=== PATIENT | female | born 1965 | race Two or more races ===

== ENCOUNTER 2018-02-22 16:43 | Outpatient (CLI) | payer BC, OTHER | END 2018-02-22 16:44 | disposition home or self-care (01) | LOC: LAB.R 16:43 | PROVIDERS: ATTEND Obstetrics & Gynecology | DX: N76.0 Acute vaginitis (principal) | CPT/HCPCS: 81001; 87086; 87181 ==

== ENCOUNTER 2018-02-22 16:55 | Outpatient (CLI) | payer BC ==
[2018-02-22 18:30] LABS: FOLLICLE STIMULATING HORMONE 106.23 mIU/mL
[2018-02-22 18:31] LABS: LUTEINIZING HORMONE 46.7 mIU/mL
== END 2018-02-22 16:56 | disposition home or self-care (01) ==
LOC: LAB 16:55
PROVIDERS: ATTEND Obstetrics & Gynecology
DX: N95.1 Menopausal and female climacteric states (principal); N76.0 Acute vaginitis
CPT/HCPCS: 36415; 82670; 83001; 83002; 87086; 87181

== ENCOUNTER 2018-03-01 15:46 | Outpatient (CLI) | payer BC ==
--- NOTE | 2018-03-02 11:13 | Ultrasound Report ---
Reason: LEIOMYOMA OF UTERUS Procedure Date: 03/01/2018 Accession Number: [id number] / [id number] Procedure: US - Pelvic w/Transvaginal CPT Code: FULL RESULT: EXAM: PELVIC ULTRASOUND EXAM DATE: 03/01/2018 06:06 PM. CLINICAL HISTORY: Leiomyoma of uterus. COMPARISON: None. TECHNIQUE: Realtime transabdominal pelvic scan performed to identify the uterus and adnexa and as an overview of other pelvic structures, followed by transvaginal scan to provide greater detail of the uterus and adnexa, with static image documentation. FINDINGS: Uterus: 7.1 x 3.6 x 5.4 cm, volume 72 cc. Anteverted position. Masses: Anterior right hyperechoic 1.8 x 1.2 x 3.0 cm mass and left posterior mildly hypoechoic 2.1 x 2.4 x 2.6 cm mass are consistent with intramural fibroids. Within the central cervix and lower uterine segment there is a solid-appearing intermediate echogenicity nodule which measures 1.8 x 1.0 x 1.3 cm, tapering in dimension superiorly. It demonstrates some internal vascularity and is suspicious for polyp or other neoplasm. Malignancy is not excluded. Endometrium: 5.3 mm. Mildly prominent for a postmenopausal patient with mild heterogenicity and some border indistinctness. Right Ovary: Only definitely visualized transabdominally. Approximate size 3.3 x 1.6 x 2.5 cm, volume 7.0 cc. Grossly normal echotexture and blood flow. Left Ovary: Only definitely visualized transabdominally. Approximate size 3.1 x 2.0 x 2.8 cm, volume 9.0 cc. Grossly normal echotexture and blood flow. Free Fluid: None. Other: None. IMPRESSION: 1. Findings consistent with 2 intramural uterine fibroids measuring up to 2.6 and 3.0 cm. 2. Endometrial thickening, heterogenicity and mild indistinctness. There is also a vascular 1.8 x 1.0 x 1.3 cm mass which is likely endometrial at the level of the cervix and lower uterine segment which could represent a polyp. Malignancy is not excluded and further evaluation is recommended. 3. The ovaries are grossly normal, by transabdominal imaging. RADIA
== END 2018-03-01 15:47 | disposition home or self-care (01) ==
LOC: DI 15:46
PROVIDERS: ATTEND Obstetrics & Gynecology
DX: D25.1 Intramural leiomyoma of uterus (principal); R93.89 Abnormal findings on diagnostic imaging of other specified body structures
CPT/HCPCS: 76830; 76856

== ENCOUNTER 2018-03-22 12:04 | Outpatient (CLI) | payer BC | END 2018-03-22 12:05 | disposition home or self-care (01) | LOC: LAB 12:04 | PROVIDERS: ATTEND Obstetrics & Gynecology | DX: N95.1 Menopausal and female climacteric states (principal) | CPT/HCPCS: 36415; 84443 ==

== ENCOUNTER 2018-05-09 12:16 | Outpatient (CLI) | payer BC ==
[2018-05-09 13:02] LABS: BASOPHILS # (AUTO) 0.1 10^3/uL (0.0-0.1); BASOPHILS % (AUTO) 1.1 %; EOSINOPHILS # (AUTO) 0.1 10^3/uL (0.0-0.7); HGB - HEMOGLOBIN 12.2 g/dL (12.0-16.0); LYMPHOCYTES % (AUTO) 42.4 %; MEAN CORPUSCULAR HEMOGLOBIN 30.1 pg (27.0-31.0); MEAN CORPUSCULAR HGB CONC 34.2 g/dL (32.0-36.0); MEAN PLATELET VOLUME 7.7 fL (7.9-10.8); MONOCYTES # (AUTO) 0.5 10^3/uL (0.0-1.0); MONOCYTES % (AUTO) 7.8 %; NEUTROPHILS # (AUTO) 3.3 10^3/uL (1.5-6.6); NEUTROPHILS % (AUTO) 46.7 %; PLT - PLATELET COUNT 335 10^3/uL (130-450); RED BLOOD COUNT 4.07 10^6/uL (4.20-5.40); RED CELL DISTRIBUTION WIDTH 13.6 % (12.0-15.0)
[2018-05-09 13:09] LABS: CREATININE 0.6 mg/dL (0.4-1.0)
[2018-05-09 15:33] LABS: BILIRUBIN,URINE NEGATIVE (NEGATIVE); GLUCOSE, URINE (UA) NEGATIVE (NEGATIVE); KETONES,URINE (UA) NEGATIVE (NEGATIVE); LEUKOCYTE ESTERASE, URINE NEGATIVE (NEGATIVE); NITRITE,URINE NEGATIVE (NEGATIVE); OCCULT BLOOD,URINE TRACE-INTA (NEGATIVE); PH,URINE 5.5 PH (5.0-7.5); PROTEIN,URINE NEGATIVE (NEGATIVE); UROBILINOGEN,URINE 0.2 (NORMAL) E.U./dL (NORMAL)
[2018-05-09 15:38] LABS: CLARITY,URINE HAZY (CLEAR)
== END 2018-05-09 12:17 | disposition home or self-care (01) ==
LOC: LAB 12:16
PROVIDERS: ATTEND Obstetrics & Gynecology
DX: Z01.812 Encounter for preprocedural laboratory examination (principal); R10.2 Pelvic and perineal pain; N84.0 Polyp of corpus uteri
CPT/HCPCS: 36415; 80048; 81003; 85025; 86850; 86900; 86901; 93005

== ENCOUNTER 2018-05-11 08:43 | Day surgery (SDC) | payer BC ==
[2018-05-11] MEDS ORDERED: ceFAZolin 2 GM/50 ML 2 GM/50 ML BAG IV ONE ×2 (08:57→09:08)
[2018-05-11] MEDS ORDERED: LACTATED RINGERS 1,000 ML IV ONE ×4 (09:11→21:38)
--- NOTE | 2018-05-11 09:57 | ANESTHESIA ---
Pre-Anesthesia VS, & Labs - Diagnosis endometrial polyp pelvic pain - Procedure total laparoscopic hysterectomy and bilateral salpingo-oopherectomy Vital Signs: Temp Pulse Resp BP Pulse Ox 37.4 C 67 16 106/86 H 100 05/11/18 09:22 05/11/18 09:22 05/11/18 09:22 05/11/18 09:22 05/11/18 09:22 Height 5 ft 4 in Weight (kg) 77.4 kg - NPO >8 hours - Is Patient ?: No Home Medications and Allergies Home Medications: Ambulatory Orders Acyclovir 400 mg PO DAILY 05/05/18 Multivitamin [Multivitamins] 1 each PO DAILY 05/05/18 Oxycodone HCl/Acetaminophen [Oxycodone-Acetaminophen 5-325] 1 tab PO Q6HR PRN 05/05/18 Acyclovir 400 mg PO DAILY 05/05/18 Multivitamin [Multivitamins] 1 each PO DAILY 05/05/18 Oxycodone HCl/Acetaminophen [Oxycodone-Acetaminophen 5-325] 1 tab PO Q6HR PRN 05/05/18 Allergies/Adverse Reactions: Allergies Allergy/AdvReac Type Severity Reaction Status Date / Time peanut Allergy Anaphylaxis Verified 05/05/18 10:21 Penicillins Allergy Hives Verified 05/05/18 10:21 Sulfa (Sulfonamide Allergy Hives Verified 05/05/18 10:21 Antibiotics) Anes History & Medical History - Anesthetic History Anesthesia Complications: reports: No previous complications Family history of Anesthesia Complications: Denies Family history of Malignant Hyperthermia: Denies - Medical History Cardiovascular: reports: None Pulmonary: reports: Asthma Gastrointestinal: reports: None, C.difficile Urinary: reports: Other Musculoskeletal: reports: Osteoarthritis Endocrine/Autoimmune: reports: None Skin: reports: Eczema - Surgical History Eyes Ears Nose Throat (EENT): Other Gynecologic: section, Dilation and currettage Exam General: Alert, Oriented x3, Cooperative, No acute distress Dental: WNL Mouth Openin Fingerbreadth Neck Mobility: Normal Mallampati classification: III Thyromental Distance: greater than 6 cm Respiratory: Lungs clear, Normal breath sounds, No respiratory distress, No accessory muscle use Cardiovascular: Regular rate, Normal S1, Normal S2, No murmurs Mental/Cognitive Status: Alert/Oriented X3, Normal for patient Plan Anesthesia Type: General Consent for Procedure(s) Verified and Reviewed: No Code Status: Attempt Resuscitation ASA classification: 2-Mild systemic disease Is this case an emergency?: No
[2018-05-11] MEDS ORDERED: METHYLENE BLUE 0.5% 50 MG/10 ML AMPULE ONE (10:03)
[2018-05-11] MEDS ORDERED: BUPIVACAINE 0.25%-EPI 1:200000 PF 30 ML VIAL ONE (10:03)
[2018-05-11] MEDS ORDERED: KETOROLAC 30 MG/ML VIAL IVP ONE (10:15)
[2018-05-11] MEDS ORDERED: GLYCOPYRROLATE 1 MG/5 ML VIAL IVP ONE (10:15)
[2018-05-11] MEDS ORDERED: SODIUM CHLORIDE 0.9% 10 ML VIAL IV ONE (10:15)
[2018-05-11] MEDS ORDERED: NEOSTIGMINE 1 MG/1 ML 10 ML MDV IVP ONE (10:15)
[2018-05-11] MEDS ORDERED: MIDAZOLAM 2 MG/2 ML VIAL IVP ONE (10:15)
[2018-05-11] MEDS ORDERED: ONDANSETRON 4 MG/2 ML VIAL IVP ONE (10:15)
[2018-05-11] MEDS ORDERED: LIDOCAINE-MPF 2% 5 ML VIAL IM ONE (10:15)
[2018-05-11] MEDS ORDERED: fentaNYL 250 MCG/5 ML VIAL IVP ONE (10:15)
[2018-05-11] MEDS ORDERED: ACETAMINOPHEN 1,000 MG/100 ML 100 ML IV ONE (10:15)
[2018-05-11] MEDS ORDERED: ePHEDrine 50 MG/ML VIAL IVP ONE (10:15)
[2018-05-11] MEDS ORDERED: DEXAMETHASONE 4 MG/ML VIAL IVP ONE (10:15)
[2018-05-11] MEDS ORDERED: ROCURONIUM 50 MG/5 ML VIAL IVP ONE (10:15)
[2018-05-11] MEDS ORDERED: PROPOFOL 200 MG/20 ML VIAL IVP ONE (10:15)
[2018-05-11 10:53] LABS: HCG,QUALITATIVE BLOOD NEGATIVE
[2018-05-11] MEDS ORDERED: BUPIVACAINE 0.25%-EPI 1:200000 PF 10 ML VIAL SUBQ ONE ×2 (11:42)
[2018-05-11] MEDS ORDERED: BACITRACIN OINT TOP ONE (13:02)
[2018-05-11] MEDS: HYDROmorphone 0.5 MG/0.5 ML SYRINGE IVP PRN ×2 (13:30→13:35)
[2018-05-11] MEDS ORDERED: HYDROmorphone 1 MG/ML CARPUJECT ONE (13:33)
[2018-05-11] MEDS ORDERED: LORazepam 2 MG/ML VIAL IVP PRN (13:35)
[2018-05-11] MEDS ORDERED: ONDANSETRON 4 MG/2 ML VIAL IVP PRN (13:35)
[2018-05-11] MEDS ORDERED: ONDANSETRON 4 MG/2 ML VIAL ONE (13:38)
--- NOTE | 2018-05-11 13:39 | OPERATIVE REPORT ---
Operative Report - General Procedure Date: 05/11/18 Planned Procedure: TLH with BS possible LO, Cysto, removal of sharif rectal skintag Pre-Op Diagnosis: Pelvic pain, Suspect infarcting uterine fibroid, endomdtrial polyp, [place] Procedure Performed: TLH with BS possible LO, Cysto, removal of sharif rectal skintag Post Op Diagnosis: Same - Procedure Note Primary Surgeon: Anthony Zeng MD, FACOG Secondary Surgeon: Cici Carballo DO, FACOG Anesthesia Provider: Deven See CRNA Anesthesia Technique: General ET tube Pathology: Uterus, Bilateral Tubes, left ovary, perirectal [place] IV Fluids (mL): 1,300 Estimated Blood Loss (mL): 150 Urine Output (mL): 400 Complications: Uterine perferation with V Care - Other Other Information/Narrative: [id number]
[2018-05-11] MEDS: oxyCODONE 5 MG TABLET PO PRN ×3 (14:59→23:07)
[2018-05-11] MEDS: ACETAMINOPHEN 500 MG TABLET PO SCH ×2 (15:47→23:55)
[2018-05-11] MEDS: DOCUSATE SODIUM 100 MG CAPSULE PO SCH (21:38)
[2018-05-11] MEDS: NITROFURANTOIN MACRO 100 MG CAPSULE PO SCH (21:38)
--- NOTE | 2018-05-12 | OPERATIVE REPORT ---
DATE OF SERVICE: 05/11/2018 Physician: Anthony Zeng MD PREOPERATIVE DIAGNOSES 1. Pelvic pain. 2. Suspected infarcting uterine fibroid. 3. Endometrial polyp. 4. Perirectal skin tag. POSTOPERATIVE DIAGNOSES 1. Pelvic pain. 2. Suspected infarcting uterine fibroid. 3. Endometrial polyp. 4. Perirectal skin tag. PROCEDURE: Total laparoscopic hysterectomy with bilateral salpingectomy and left oophorectomy, with cystoscopy and removal of perirectal skin tag. SURGEON: Dr. Anthony Zeng. SPECIALIST WOUND CARE: Dr. Cici Carballo. ANESTHESIA: General via endotracheal tube. ANESTHESIA PROVIDER: Deven See CRNA. IV FLUIDS: 1300 mL. ESTIMATED BLOOD LOSS: 150 mL. URINE OUTPUT: 400 mL. SPECIMENS TO PATHOLOGY 1. Uterus with bilateral tubes and left ovary. 2. Left perirectal skin tag. FINDINGS: Upon entering the abdominal cavity, the ovaries appeared to be quite atrophic. There was evidence that the VCare catheter had perforated the apex of the uterus. The uterus had sounded 7 cm. There was a perirectal skin tag, which appeared to release sebaceous material with excision. PROCEDURE: Following adequate endotracheal anesthesia, patient was placed in the dorsal lithotomy position in [facility]. At this point, she was prepped and draped in the usual fashion. A timeout was performed in which the patient was identified and concerns addressed. A speculum was placed in the vagina, cervix visualized, grasped with a single-tooth tenaculum. It was then dilated up to size 8 mm dilators. Uterus was sounded to 7 cm. A medium VCare was then inserted in the vagina, and then the cups were then brought down over the cervix. At this point, the uterine manipulator was noted to be deeper than anticipated, and because the uterus was going to be taken out and it was suspected that the uterus was perforated, the procedure was continued. A glove stuffed with 3 moist Ray-Tecs was then placed in the vagina around the manipulator to maintain a pneumoperitoneum following opening of the vaginal cuff. The operator assistant i cementing's gloves were changed, and then 3 stab wounds were made in the subumbilical area as well as the left and right lower quadrants. These were all done following local anesthetic with 0.25% Marcaine with epinephrine. The subumbilical port was placed under direct visualization. The left and right ports were also placed under direct visualization. There was no evidence of any active bleeding from any of these sites or the insertion site from the subumbilical trocar. The pelvis was inspected, and there was no evidence of any adhesions. There was possibly endometriosis in the peritoneal wall noted anteriorly. At this point, the right fallopian tube was grasped, and then the tubo-ovarian ligament was transected with the LigaSure following cauterization. The tube was then was then dissected free from the ovary, utilizing LigaSure. Care was taken to stay as close to the tube as possible to decrease the risk of injury to the vasculature to the right ovary. This was carried all the way down to the uterine cornu, and then the uteroovarian ligament was cauterized and transected as well as the round ligament. The broad ligament was then splayed open, and then the anterior leaf was divided, brought down to the bladder, and then the bladder was dissected free from the uterus. It was cauterized and transected. The uterine vessels on the right hand side were then isolated, doubly cauterized, and transected. This was carried down to the uterosacral ligament on the right hand side. There was evidence of good hemostasis without evidence of any bleeding. The ureter on the right hand side had already been identified to assure that it was out of the operative field to minimize its risk of injury. At this point, the left tube and ovary were identified. The infundibulopelvic ligament was doubly cauterized and then transected. The mesovarium was then cauterized, transected. This was brought down to the round ligament, which was doubly cauterized and then transected. The anterior leaf of the broad ligament was once again dissected free, and this was carried down to the lower portion of the uterus and met the opening from the bladder flap from the right hand side. The posterior leaf of the broad ligament was cauterized and transected. The uterine vessels were identified, cauterized, transected. Prior to this, the ureter had also been visualized and made sure that it was out of the operative field. At this point, the bladder was pushed free from the lower uterine segment, and the cup from the VCare was then palpated. Utilizing a Harmonic scalpel, the apex of the vagina was opened, and then the cervix was circumscribed free from the apex of the vagina. There was evidence of good hemostasis. The uterus was then removed through the vagina and left in the vagina to tamponade the flow of carbon dioxide from the vagina and to maintain a pneumoperitoneum. The apex of the vagina was then closed utilizing 0 V-Loc suture. Care was taken to include the vaginal epithelium, both anteriorly and posteriorly to assure good closure. The apex was inspected for bleeding; none was noted. At this point, a cystoscopy was performed, and there was evidence of good flow of urine through both ureteral orifices. The trocars were then removed from the abdominal cavity after allowing the CO2 to escape as much as possible. These ports were then closed utilizing Monocryl subcuticular with Dermabond on top. The uterus was then removed from the vagina, the Walker catheter was replaced, and then the attention was changed to the skin tag in the perirectal area. This was grasped with Adson's and then transected with Metzenbaum scissors. The base was then cauterized, and then antibiotic ointment was placed on this. Patient tolerated procedure well, was taken to recovery in stable condition. Sponge and needle counts were correct. TD: 05/11/2018 14:03 ASAEL
[2018-05-12] MEDS: oxyCODONE 5 MG TABLET PO PRN ×3 (03:12→11:25)
[2018-05-12] MEDS: ACETAMINOPHEN 500 MG TABLET PO SCH ×2 (06:40→08:52)
[2018-05-12] MEDS ORDERED: LACTATED RINGERS 1,000 ML IV ONE (07:05)
[2018-05-12] MEDS ORDERED: KETOROLAC 30 MG/ML VIAL IVP PRN (08:29)
[2018-05-12] MEDS ORDERED: SODIUM CHLORIDE FLUSH 0.9% 10 ML SYRINGE ONE (08:50)
[2018-05-12] MEDS: DOCUSATE SODIUM 100 MG CAPSULE PO SCH (08:52)
[2018-05-12] MEDS: NITROFURANTOIN MACRO 100 MG CAPSULE PO SCH (08:52)
[2018-05-12 08:55] LABS: BASOPHILS % (AUTO) 0.3 %; EOSINOPHILS # (AUTO) 0.1 10^3/uL (0.0-0.7); EOSINOPHILS % (AUTO) 0.6 %; HGB - HEMOGLOBIN 10.6 g/dL (12.0-16.0); LYMPHOCYTES # (AUTO) 3.6 10^3/uL (1.5-3.5); MEAN CORPUSCULAR HEMOGLOBIN 29.6 pg (27.0-31.0); MEAN CORPUSCULAR VOLUME 89.6 fL (81.0-99.0); MEAN PLATELET VOLUME 7.9 fL (7.9-10.8); MONOCYTES # (AUTO) 0.9 10^3/uL (0.0-1.0); MONOCYTES % (AUTO) 6.1 %; NEUTROPHILS # (AUTO) 9.8 10^3/uL (1.5-6.6); PLT - PLATELET COUNT 283 10^3/uL (130-450); RED BLOOD COUNT 3.57 10^6/uL (4.20-5.40); RED CELL DISTRIBUTION WIDTH 13.9 % (12.0-15.0); WHITE BLOOD COUNT 14.5 x10^3/uL (4.8-10.8)
[2018-05-12 11:21] VITALS: BP 130/87
== END 2018-05-12 11:41 | disposition home or self-care (01) ==
LOC: SDS 08:43 → MS2 14:46 → SDS 05-12 11:41
PROVIDERS: ATTEND Obstetrics & Gynecology
PROC: 0DBQXZZ Excision of Anus, External Approach (ICD-10-PCS; 2018-05-11)
PROC: 0UT94ZZ Resection of Uterus, Percutaneous Endoscopic Approach (ICD-10-PCS; principal; 2018-05-11 10:15)
PROC: 0UT14ZZ Resection of Left Ovary, Percutaneous Endoscopic Approach (ICD-10-PCS; 2018-05-11 10:15)
PROC: 0UT74ZZ Resection of Bilateral Fallopian Tubes, Percutaneous Endoscopic Approach (ICD-10-PCS; 2018-05-11 10:15)
DX: R10.2 Pelvic and perineal pain (principal); N84.0 Polyp of corpus uteri; D25.9 Leiomyoma of uterus, unspecified; N94.12 Deep dyspareunia; L72.0 Epidermal cyst; K64.4 Residual hemorrhoidal skin tags
CPT/HCPCS: 36415; 46220; 58571; 84703; 85025; A9270; J0131; J0690; J1170; J3010; J7120; 81025

== ENCOUNTER 2018-11-13 17:56 | Emergency (ER) | payer OTHER, BC ==
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
[2018-11-13 19:18] VITALS: BP 122/82
== END 2018-11-13 19:26 | disposition home or self-care (01) ==
LOC: EDUNIT# → ED 17:56
DX: S20.219A Contusion of unspecified front wall of thorax, initial encounter (principal); M54.2 Cervicalgia; V43.52XA Car driver injured in collision with other type car in traffic accident, initial encounter; Y92.488 Other paved roadways as the place of occurrence of the external cause
CPT/HCPCS: 71046; 99282; 99283

== ENCOUNTER 2019-05-25 09:02 | Emergency (ER) | payer OTHER, BC ==
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
[2019-05-25] MEDS ORDERED: ACETAMINOPHEN 325 MG TABLET PO STA (10:52)
[2019-05-25] MEDS ORDERED: IBUPROFEN 600 MG TABLET PO STA (10:52)
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
[2019-05-25 12:01] VITALS: BP 139/72
== END 2019-05-25 12:02 | disposition home or self-care (01) ==
LOC: ED 09:02
DX: S29.012A Strain of muscle and tendon of back wall of thorax, initial encounter (principal); M54.2 Cervicalgia; V43.52XA Car driver injured in collision with other type car in traffic accident, initial encounter; Y92.410 Unspecified street and highway as the place of occurrence of the external cause; M51.36 Other intervertebral disc degeneration, lumbar region
CPT/HCPCS: 72070; 72100; 99283; 99284; A9270

== ENCOUNTER 2019-08-24 08:00 | Outpatient (CLI) | payer BC, OTHER | END 2019-08-24 23:59 | disposition home or self-care (01) | LOC: LAB.R 08:00 | PROVIDERS: ATTEND Obstetrics & Gynecology | DX: N36.2 Urethral caruncle (principal); R31.9 Hematuria, unspecified | CPT/HCPCS: 87086; 87181 ==

== ENCOUNTER 2020-02-28 07:00 | Outpatient (CLI) | payer BC | END 2020-02-28 07:01 | disposition home or self-care (01) | LOC: LAB.R 07:00 | PROVIDERS: ATTEND Obstetrics & Gynecology | DX: N36.2 Urethral caruncle (principal); R31.9 Hematuria, unspecified | CPT/HCPCS: 87086 ==

== ENCOUNTER 2021-08-06 08:00 | Outpatient (CLI) | payer BC ==
[2021-08-06 12:52] LABS: BILIRUBIN,URINE NEGATIVE (NEGATIVE); GLUCOSE, URINE (UA) NEGATIVE (NEGATIVE); KETONES,URINE (UA) NEGATIVE (NEGATIVE); LEUKOCYTE ESTERASE, URINE NEGATIVE (NEGATIVE); NITRITE,URINE POSITIVE (NEGATIVE); OCCULT BLOOD,URINE MODERATE (NEGATIVE); PROTEIN,URINE NEGATIVE (NEGATIVE); UROBILINOGEN,URINE 0.2 (NORMAL) E.U./dL (NORMAL)
[2021-08-06 12:55] LABS: CLARITY,URINE CLOUDY (CLEAR)
[2021-08-06 13:01] LABS: WBC,URINE 0-3 /HPF (0-5)
[2021-08-06 13:02] LABS: AMORPHOUS SEDIMENT,UR Marked /LPF; BACTERIA,URINE Moderate /HPF (None Seen); RBC,URINE None Seen /HPF (0-5); SQUAMOUS EPITHELIAL CELL,UR RARE Squamous (<= Few)
[2021-08-06 16:59] LABS: BACTERIAL VAGINOSIS DNA NEGATIVE (NEGATIVE); CANDIDA GLABRATA DNA NEGATIVE (NEGATIVE); CANDIDA GROUP DNA NEGATIVE (NEGATIVE); CANDIDA KRUSEI DNA NEGATIVE (NEGATIVE); TRICHOMONAS VAGINALIS DNA NEGATIVE (NEGATIVE)
== END 2021-08-06 23:59 | disposition home or self-care (01) ==
LOC: LAB.N 08:00
PROVIDERS: ATTEND Obstetrics & Gynecology
DX: N76.0 Acute vaginitis (principal); R31.9 Hematuria, unspecified
CPT/HCPCS: 81001; 81514; 87086; 87181

== ENCOUNTER 2021-09-09 08:49 | Outpatient (CLI) | payer BC ==
--- NOTE | 2021-09-10 13:42 | Mammography Report ---
BILATERAL DIGITAL SCREENING MAMMOGRAM 3D/2D: 09/09/2021 CLINICAL: Routine screening. Family history of breast cancer. Baseline exam. No prior exams were available for comparison. There are scattered fibroglandular elements in both br easts. No significant masses, calcifications, or other findings are seen in either breast. IMPRESSION: NEGATIVE There is no mammographic evidence of malignancy. A 1 year screening mammogram is recommended. This exam was interpreted at Station ID: [id number]. NOTE: For mammograms, a report in lay terms will be sent to the patient. Approximately 15% of breast malignancies will not be visualized mammographically. In the management of a palpable breast mass, a negative mammogram must not discourage biopsy of a clinically suspicious lesion. Electronically Signed By: Shakir mead/abhijit:09/10/2021 11:32:08 ACR BI-RADS Category 1: Negative 3341F PARENCHYMAL PATTERN: (A) - The breast(s) demonstrate(s) scattered fibroglandular densities. BI-RADS CATEGORY: (1) - 1 RECOMMENDATION: (ANNUAL) - Recommend routine annual screening mammography. [id number] 1 year screening LATERALITY: (B)
== END 2021-09-09 08:50 | disposition home or self-care (01) ==
LOC: DI.S 08:49
PROVIDERS: ATTEND Obstetrics & Gynecology
DX: Z12.31 Encounter for screening mammogram for malignant neoplasm of breast (principal); Z80.3 Family history of malignant neoplasm of breast

== ENCOUNTER 2022-04-02 08:00 | Outpatient (CLI) | payer BC ==
--- NOTE | 2022-04-02 16:10 | XRAY Report ---
PROCEDURE: Ankle 3 View RT INDICATIONS: Contusion of the right ankle TECHNIQUE: 3 views of the ankle were acquired. COMPARISON: None. FINDINGS: Bones: No fractures or dislocations. Ankle mortise is normally aligned. No suspicious bony lesions . Soft tissues: No tibiotalar joint effusion. Achilles tendon appears normal. IMPRESSION: No acute finding. Reviewed by: Vin Schilling MD on 04/02/2022 3:08 PM [facility] Approved by: Vin Schilling MD on 04/02/2022 3:08 PM [facility] Station ID: [id number]
== END 2022-04-02 08:01 | disposition home or self-care (01) ==
LOC: DI.S 08:00
PROVIDERS: ATTEND Physician Assistant Medical
DX: S90.01XA Contusion of right ankle, initial encounter (principal); S80.11XA Contusion of right lower leg, initial encounter

== ENCOUNTER 2022-06-18 13:34 | Outpatient (CLI) | payer BC ==
--- NOTE | 2022-06-18 15:33 | XRAY Report ---
PROCEDURE: Chest 2 View X-Ray INDICATIONS: COMMUNITY ACQUIRED PNEUMONIA TECHNIQUE: 2 views of the chest were acquired. COMPARISON: None. FINDINGS: Surgical changes and devices: None. Lungs and pleura: No pleural effusions or pneumothorax. Lungs are clear. Mediastinum: Mediastinal contours are normal. Heart size is normal. Bones and chest wall: No suspicious bony abnormalities. Soft tissues appear unremarkable. IMPRESSION: No acute process. Reviewed by: Nataliia Ortiz MD on 06/18/2022 3:32 PM PST Approved by: Nataliia Ortiz MD on 06/18/2022 3:32 PM [facility] Station ID: [id number]
== END 2022-06-18 23:59 | disposition home or self-care (01) ==
LOC: DI.S 13:34
PROVIDERS: ATTEND Physician Assistant
DX: J18.9 Pneumonia, unspecified organism (principal)

== ENCOUNTER 2022-12-22 15:42 | Outpatient (CLI) | payer BC ==
[2022-12-22 16:25] LABS: BASOPHILS # (AUTO) 0.1 10^3/uL (0.0-0.1); BASOPHILS % (AUTO) 1.3 %; EOSINOPHILS # (AUTO) 0.4 10^3/uL (0.0-0.7); EOSINOPHILS % (AUTO) 4.9 %; HCT - HEMATOCRIT 38.9 % (37.0-47.0); HGB - HEMOGLOBIN 12.4 g/dL (12.0-16.0); LYMPHOCYTES # (AUTO) 3.1 10^3/uL (1.5-3.5); LYMPHOCYTES % (AUTO) 40.6 %; MEAN CORPUSCULAR HEMOGLOBIN 29.2 pg (27.0-31.0); MEAN CORPUSCULAR HGB CONC 31.9 g/dL (32.0-36.0); MEAN CORPUSCULAR VOLUME 91.7 fL (81.0-99.0); MEAN PLATELET VOLUME 9.9 fL (7.9-10.8); MONOCYTES # (AUTO) 0.6 10^3/uL (0.0-1.0); NEUTROPHILS # (AUTO) 3.4 10^3/uL (1.5-6.6); NEUTROPHILS % (AUTO) 45.1 %; PLT - PLATELET COUNT 366 10^3/uL (130-450); RED BLOOD COUNT 4.24 10^6/uL (4.20-5.40); RED CELL DISTRIBUTION WIDTH 13.6 % (12.0-15.0); WHITE BLOOD COUNT 7.5 x10^3/uL (4.8-10.8)
[2022-12-22 17:14] LABS: ALBUMIN 4.4 g/dL (3.2-5.5); ALBUMIN/GLOBULIN RATIO 1.5 (1.0-2.2); ALKALINE PHOSPHATASE 90 IU/L (42-121); ALT ALANINE AMINOTRANSFERASE 16 IU/L (10-60); AST ASPARTATE AMINOTRANSFERASE 20 IU/L (10-42); BILIRUBIN,TOTAL 0.4 mg/dL (0.2-1.0); BUN - BLOOD UREA NITROGEN 13 mg/dL (6-20); CARBON DIOXIDE - CO2 25 mmol/L (21-32); CHLORIDE 106 mmol/L (101-111); CHOL/HDL RATIO 3.9 (<4.4); CHOLESTEROL 224 mg/dL; CREATININE 0.5 mg/dL (0.4-1.0); GFR - MDRD 126 (>89); GLUCOSE 101 mg/dL (70-100); HDL CHOLESTEROL 58 mg/dL; LDL CHOLESTEROL,CALCULATED 145 mg/dL; LDL/HDL RATIO 2.5 (<4.4); POTASSIUM 4.2 mmol/L (3.5-5.0); SODIUM 139 mmol/L (135-145); TOTAL PROTEIN 7.4 g/dL (6.7-8.2); TRIGLYCERIDES 106 mg/dL; VLDL CHOLESTEROL 21 mg/dL
[2022-12-23 05:12] LABS: HEPATITIS B SURFACE AB QUANT 295.8 mIU/mL (Immunity>9.9); HEPATITIS BE ANTIGEN Negative (Negative)
[2022-12-23 06:10] LABS: HCV AB Non Reactive (Non Reactive)
== END 2022-12-22 15:43 | disposition home or self-care (01) ==
LOC: LAB 15:42
PROVIDERS: ATTEND Dermatology
DX: L20.89 Other atopic dermatitis (principal)
CPT/HCPCS: 36415; 80053; 80061; 81599; 83721; 85025; 86317; 86480; 86704; 86803; 87350

== ENCOUNTER 2023-01-04 11:19 | Outpatient (CLI) | payer BC | END 2023-01-04 11:20 | disposition home or self-care (01) | LOC: LAB.S 11:19 | PROVIDERS: ATTEND Dermatology | DX: L20.89 Other atopic dermatitis (principal) | CPT/HCPCS: 81599; 86480 ==

== ENCOUNTER 2023-01-05 08:00 | Outpatient (CLI) | payer BC | END 2023-01-05 23:59 | disposition home or self-care (01) | LOC: LAB 08:00 | PROVIDERS: ATTEND Physician Assistant | DX: R30.0 Dysuria (principal) | CPT/HCPCS: 87086 ==

== ENCOUNTER 2023-03-01 11:47 | Outpatient (CLI) | payer BC | END 2023-03-01 11:48 | disposition home or self-care (01) | LOC: LAB.S 11:47 | PROVIDERS: ATTEND Dermatology | DX: L20.89 Other atopic dermatitis (principal); H01.005 Unspecified blepharitis left lower eyelid; H01.006 Unspecified blepharitis left eye, unspecified eyelid; H01.002 Unspecified blepharitis right lower eyelid; H01.003 Unspecified blepharitis right eye, unspecified eyelid | CPT/HCPCS: 36415; 80053; 80061; 83721; 85025 ==

== ENCOUNTER 2023-03-02 14:20 | Outpatient (CLI) | payer BC ==
[2023-03-02 19:56] LABS: BASOPHILS # (AUTO) 0.1 10^3/uL (0.0-0.1); BASOPHILS % (AUTO) 0.7 %; EOSINOPHILS # (AUTO) 0.1 10^3/uL (0.0-0.7); EOSINOPHILS % (AUTO) 1.9 %; HCT - HEMATOCRIT 40.1 % (37.0-47.0); HGB - HEMOGLOBIN 12.1 g/dL (12.0-16.0); LYMPHOCYTES # (AUTO) 3.4 10^3/uL (1.5-3.5); MEAN CORPUSCULAR HEMOGLOBIN 29.4 pg (27.0-31.0); MEAN CORPUSCULAR HGB CONC 30.2 g/dL (32.0-36.0); MEAN CORPUSCULAR VOLUME 97.3 fL (81.0-99.0); MEAN PLATELET VOLUME 10.7 fL (7.9-10.8); MONOCYTES # (AUTO) 0.6 10^3/uL (0.0-1.0); MONOCYTES % (AUTO) 7.9 %; NEUTROPHILS # (AUTO) 3.1 10^3/uL (1.5-6.6); NEUTROPHILS % (AUTO) 42.2 %; PLT - PLATELET COUNT 362 10^3/uL (130-450); RED BLOOD COUNT 4.12 10^6/uL (4.20-5.40); RED CELL DISTRIBUTION WIDTH 14.3 % (12.0-15.0); WHITE BLOOD COUNT 7.2 x10^3/uL (4.8-10.8)
[2023-03-02 20:08] LABS: ALBUMIN 4.5 g/dL (3.2-5.5); ALBUMIN/GLOBULIN RATIO 1.5 (1.0-2.2); ALKALINE PHOSPHATASE 87 IU/L (42-121); ALT ALANINE AMINOTRANSFERASE 19 IU/L (10-60); AST ASPARTATE AMINOTRANSFERASE 22 IU/L (10-42); BILIRUBIN,TOTAL 0.3 mg/dL (0.2-1.0); BUN - BLOOD UREA NITROGEN 15 mg/dL (6-20); CALCIUM 9.1 mg/dL (8.5-10.3); CARBON DIOXIDE - CO2 27 mmol/L (21-32); CHLORIDE 104 mmol/L (101-111); CHOL/HDL RATIO 3.6 (<4.4); CHOLESTEROL 231 mg/dL; CREATININE 0.6 mg/dL (0.6-1.3); GFR - MDRD 102 (>89); GLUCOSE 111 mg/dL (74-104); HDL CHOLESTEROL 64 mg/dL; LDL CHOLESTEROL,CALCULATED 132 mg/dL; LDL/HDL RATIO 2.1 (<4.4); POTASSIUM 4.1 mmol/L (3.5-4.5); SODIUM 138 mmol/L (135-145); TOTAL PROTEIN 7.5 g/dL (6.4-8.9); TRIGLYCERIDES 177 mg/dL (48-352); VLDL CHOLESTEROL 35 mg/dL
== END 2023-03-02 14:21 | disposition home or self-care (01) ==
LOC: LAB.S 14:20
PROVIDERS: ATTEND Dermatology
DX: L20.89 Other atopic dermatitis (principal); H01.003 Unspecified blepharitis right eye, unspecified eyelid; H01.002 Unspecified blepharitis right lower eyelid; H01.006 Unspecified blepharitis left eye, unspecified eyelid; H01.005 Unspecified blepharitis left lower eyelid
CPT/HCPCS: 36415; 80053; 80061; 83721; 85025

== ENCOUNTER 2023-04-01 14:06 | Outpatient (CLI) | payer BC ==
[2023-04-01 20:00] LABS: BASOPHILS # (AUTO) 0.1 10^3/uL (0.0-0.1); BASOPHILS % (AUTO) 0.8 %; EOSINOPHILS % (AUTO) 0.7 %; HCT - HEMATOCRIT 38.1 % (37.0-47.0); HGB - HEMOGLOBIN 11.9 g/dL (12.0-16.0); LYMPHOCYTES # (AUTO) 3.2 10^3/uL (1.5-3.5); LYMPHOCYTES % (AUTO) 52.7 %; MEAN CORPUSCULAR HEMOGLOBIN 29.9 pg (27.0-31.0); MEAN CORPUSCULAR HGB CONC 31.2 g/dL (32.0-36.0); MEAN CORPUSCULAR VOLUME 95.7 fL (81.0-99.0); MEAN PLATELET VOLUME 10.2 fL (7.9-10.8); MONOCYTES # (AUTO) 0.5 10^3/uL (0.0-1.0); NEUTROPHILS # (AUTO) 2.3 10^3/uL (1.5-6.6); NEUTROPHILS % (AUTO) 37.8 %; PLT - PLATELET COUNT 339 10^3/uL (130-450); RED BLOOD COUNT 3.98 10^6/uL (4.20-5.40); RED CELL DISTRIBUTION WIDTH 14.9 % (12.0-15.0); WHITE BLOOD COUNT 6.1 x10^3/uL (4.8-10.8)
[2023-04-01 20:31] LABS: ALBUMIN 4.8 g/dL (3.2-5.5); ALBUMIN/GLOBULIN RATIO 1.7 (1.0-2.2); ALKALINE PHOSPHATASE 81 IU/L (42-121); ALT ALANINE AMINOTRANSFERASE 19 IU/L (10-60); AST ASPARTATE AMINOTRANSFERASE 22 IU/L (10-42); BILIRUBIN,TOTAL 0.4 mg/dL (0.2-1.0); BUN - BLOOD UREA NITROGEN 17 mg/dL (6-20); CALCIUM 9.6 mg/dL (8.5-10.3); CARBON DIOXIDE - CO2 30 mmol/L (21-32); CHLORIDE 105 mmol/L (101-111); CHOL/HDL RATIO 3.9 (<4.4); CHOLESTEROL 276 mg/dL; CREATININE 0.7 mg/dL (0.6-1.3); GFR - MDRD 86 (>89); GLUCOSE 94 mg/dL (74-104); HDL CHOLESTEROL 71 mg/dL; LDL CHOLESTEROL,CALCULATED 177 mg/dL; LDL/HDL RATIO 2.5 (<4.4); POTASSIUM 4.2 mmol/L (3.5-4.5); SODIUM 139 mmol/L (135-145); TOTAL PROTEIN 7.7 g/dL (6.4-8.9); TRIGLYCERIDES 141 mg/dL (48-352); VLDL CHOLESTEROL 28 mg/dL
== END 2023-04-01 14:07 | disposition home or self-care (01) ==
LOC: LAB.S 14:06
PROVIDERS: ATTEND Dermatology
DX: L20.89 Other atopic dermatitis (principal); H01.002 Unspecified blepharitis right lower eyelid; H01.005 Unspecified blepharitis left lower eyelid
CPT/HCPCS: 36415; 80053; 80061; 83721; 85025

== ENCOUNTER 2023-06-24 13:14 | Outpatient (CLI) | payer BC ==
[2023-06-24 19:39] LABS: BASOPHILS # (AUTO) 0.1 10^3/uL (0.0-0.1); BASOPHILS % (AUTO) 0.8 %; EOSINOPHILS # (AUTO) 0.1 10^3/uL (0.0-0.7); EOSINOPHILS % (AUTO) 1.1 %; HCT - HEMATOCRIT 38.9 % (37.0-47.0); LYMPHOCYTES # (AUTO) 3.1 10^3/uL (1.5-3.5); MEAN CORPUSCULAR HGB CONC 30.8 g/dL (32.0-36.0); MEAN CORPUSCULAR VOLUME 100.5 fL (81.0-99.0); MEAN PLATELET VOLUME 10.5 fL (7.9-10.8); MONOCYTES # (AUTO) 0.5 10^3/uL (0.0-1.0); MONOCYTES % (AUTO) 7.7 %; NEUTROPHILS # (AUTO) 2.8 10^3/uL (1.5-6.6); NEUTROPHILS % (AUTO) 43.1 %; PLT - PLATELET COUNT 433 10^3/uL (130-450); RED BLOOD COUNT 3.87 10^6/uL (4.20-5.40); RED CELL DISTRIBUTION WIDTH 12.8 % (12.0-15.0); WHITE BLOOD COUNT 6.6 x10^3/uL (4.8-10.8)
[2023-06-24 20:14] LABS: ALBUMIN 4.7 g/dL (3.2-5.5); ALBUMIN/GLOBULIN RATIO 1.5 (1.0-2.2); ALKALINE PHOSPHATASE 83 IU/L (42-121); ALT ALANINE AMINOTRANSFERASE 19 IU/L (10-60); AST ASPARTATE AMINOTRANSFERASE 20 IU/L (10-42); BILIRUBIN,TOTAL 0.4 mg/dL (0.2-1.0); BUN - BLOOD UREA NITROGEN 15 mg/dL (6-20); CARBON DIOXIDE - CO2 31 mmol/L (21-32); CHLORIDE 102 mmol/L (101-111); CHOL/HDL RATIO 3.6 (<4.4); CHOLESTEROL 220 mg/dL; CREATININE 0.7 mg/dL (0.6-1.3); GFR - MDRD 86 (>89); GLUCOSE 103 mg/dL (74-104); HDL CHOLESTEROL 61 mg/dL; LDL CHOLESTEROL,CALCULATED 103 mg/dL; LDL/HDL RATIO 1.7 (<4.4); POTASSIUM 4.9 mmol/L (3.5-4.5); SODIUM 137 mmol/L (135-145); TOTAL PROTEIN 7.8 g/dL (6.4-8.9); TRIGLYCERIDES 279 mg/dL (48-352); VLDL CHOLESTEROL 56 mg/dL
== END 2023-06-24 13:15 | disposition home or self-care (01) ==
LOC: LAB.S 13:14
PROVIDERS: ATTEND Dermatology
DX: L20.89 Other atopic dermatitis (principal); H01.003 Unspecified blepharitis right eye, unspecified eyelid; H01.002 Unspecified blepharitis right lower eyelid; H01.006 Unspecified blepharitis left eye, unspecified eyelid; H01.005 Unspecified blepharitis left lower eyelid
CPT/HCPCS: 36415; 80053; 80061; 83721; 85025

== ENCOUNTER 2023-09-15 08:49 | Outpatient (CLI) | payer BC ==
--- NOTE | 2023-09-16 09:34 | Mammography Report ---
BILATERAL DIGITAL SCREENING MAMMOGRAM 3D/2D: 09/15/2023 CLINICAL: Routine screening. Family history of breast cancer. Comparison is made to exam dated: 09/09/2021 mammogram - [facility]. There are scattered areas of fibroglandular density in both breasts (category b / 25%-50% glandular t issue). No significant masses, calcifications, or other findings are seen in either breast. There has been no significant interval change. IMPRESSION: NEGATIVE There is no mammographic evidence of malignancy. A 1 year screening mammogram is recommended. Based on the Tyrer Cuzick model (a risk assessment model) the patient's lifetime risk is 11.1% and he r 10 year risk is 4.3%. According to the ACR, ACS, and NCCN guidelines, an annual breast MRI exam osvaldo ng with mammogram is recommended if the patient's lifetime risk is 20% or greater. This exam was interpreted at Station ID: [id number]. NOTE: For mammograms, a report in lay terms will be sent to the patient. Approximately 15% of breast malignancies will not be visualized mammographically. In the management of a palpable breast mass, a negative mammogram must not discourage biopsy of a clinically suspicious lesion. Electronically Signed By: Stacey Hyman M.D., Ph.D. dustin/abhijit:09/15/2023 14:45:26 letter sent: No_Letter ACR BI-RADS Category 1: Negative 3341F PARENCHYMAL PATTERN: (A) - The breast(s) demonstrate(s) scattered fibroglandular densities. BI-RADS CATEGORY: (1) - 1 RECOMMENDATION: (ANNUAL) - Recommend routine annual screening mammography. [id number] 1 year screening LATERALITY: (B)
== END 2023-09-15 08:50 | disposition home or self-care (01) ==
LOC: DI.S 08:49
DX: Z12.31 Encounter for screening mammogram for malignant neoplasm of breast (principal); Z80.3 Family history of malignant neoplasm of breast; R92.323 Mammographic fibroglandular density, bilateral breasts

== ENCOUNTER 2023-09-15 08:51 | Outpatient (CLI) | payer BC ==
[2023-09-15 14:32] LABS: BASOPHILS # (AUTO) 0.1 10^3/uL (0.0-0.1); BASOPHILS % (AUTO) 1.3 %; EOSINOPHILS # (AUTO) 0.1 10^3/uL (0.0-0.7); EOSINOPHILS % (AUTO) 2.2 %; HGB - HEMOGLOBIN 11.5 g/dL (12.0-16.0); LYMPHOCYTES % (AUTO) 53.9 %; MEAN CORPUSCULAR HEMOGLOBIN 29.7 pg (27.0-31.0); MEAN CORPUSCULAR HGB CONC 30.3 g/dL (32.0-36.0); MEAN CORPUSCULAR VOLUME 98.2 fL (81.0-99.0); MEAN PLATELET VOLUME 10.3 fL (7.9-10.8); MONOCYTES # (AUTO) 0.4 10^3/uL (0.0-1.0); MONOCYTES % (AUTO) 7.7 %; NEUTROPHILS # (AUTO) 1.9 10^3/uL (1.5-6.6); NEUTROPHILS % (AUTO) 34.5 %; PLT - PLATELET COUNT 380 10^3/uL (130-450); RED BLOOD COUNT 3.87 10^6/uL (4.20-5.40); RED CELL DISTRIBUTION WIDTH 14.1 % (12.0-15.0); WHITE BLOOD COUNT 5.6 x10^3/uL (4.8-10.8)
[2023-09-15 14:57] LABS: ALBUMIN 4.7 g/dL (3.2-5.5); ALBUMIN/GLOBULIN RATIO 1.7 (1.0-2.2); ALKALINE PHOSPHATASE 56 IU/L (42-121); ALT ALANINE AMINOTRANSFERASE 19 IU/L (10-60); AST ASPARTATE AMINOTRANSFERASE 22 IU/L (10-42); BILIRUBIN,TOTAL 0.7 mg/dL (0.2-1.0); BUN - BLOOD UREA NITROGEN 15 mg/dL (6-20); CALCIUM 9.5 mg/dL (8.5-10.3); CARBON DIOXIDE - CO2 25 mmol/L (21-32); CHLORIDE 106 mmol/L (101-111); CHOL/HDL RATIO 3.5 (<4.4); CHOLESTEROL 263 mg/dL; CREATININE 0.7 mg/dL (0.6-1.3); GFR - MDRD 86 (>89); GLUCOSE 92 mg/dL (74-104); HDL CHOLESTEROL 75 mg/dL; LDL CHOLESTEROL,CALCULATED 172 mg/dL; LDL/HDL RATIO 2.3 (<4.4); POTASSIUM 3.8 mmol/L (3.5-4.5); SODIUM 137 mmol/L (135-145); TOTAL PROTEIN 7.5 g/dL (6.4-8.9); TRIGLYCERIDES 79 mg/dL (48-352); VLDL CHOLESTEROL 16 mg/dL
== END 2023-09-15 08:52 | disposition home or self-care (01) ==
LOC: LAB.S 08:51
PROVIDERS: ATTEND Dermatology
DX: L20.89 Other atopic dermatitis (principal); H01.002 Unspecified blepharitis right lower eyelid; H01.005 Unspecified blepharitis left lower eyelid; Z79.899 Other long term (current) drug therapy
CPT/HCPCS: 36415; 80053; 80061; 83721; 85025